=== PATIENT | male | born 1935 | race African-American/Black ===

== ENCOUNTER 2017-03-19 13:22 | Inpatient (IN) | payer OTHER, MEDICAID ==
[~2017-03-19] VITALS: Ht 175.3 cm; Wt 78.9 kg
[2017-03-19] MEDS ORDERED: ONDANSETRON HCL 4MG/2ML VIAL IV STA (13:49)
[2017-03-19] MEDS ORDERED: MORPHINE SULFATE 4 MG/ML CPJ (NOT FOR IM USE) IV STA (13:49)
[2017-03-19] MEDS ORDERED: ASPIRIN 81MG TABLET PO ONE (14:00)
[2017-03-19 14:38] LABS: BASOPHILS % 0.6 % (0.0-2.0); EOSINOPHILS % 1.2 % (0.0-5.0); HEMATOCRIT. 40.3 % (42.0-52.0); HEMOGLOBIN. 13.4 g/dL (14.0-18.0); LYMPHOCYTES % 16.9 % (20.0-50.0); MEAN CORPUSCULAR HGB CONC 33.2 g/dL (31.0-37.0); MEAN CORPUSCULAR VOLUME 93.5 fL (80.0-94.0); MEAN PLATELET VOLUME 9.8 fl (7.4-10.4); MONOCYTES % 5.7 % (2.0-8.0); NEUTROPHILS % 75.6 % (40.0-76.0); PLATELET 227 x1000/uL (130-400); RED BLOOD CELL COUNT 4.31 mill/uL (4.7-6.1); RED CELL DISTRIBUTION WIDTH 14.2 % (11.6-14.6); WHITE BLOOD COUNT 9.3 x1000/uL (4.5-11.0)
[2017-03-19 14:40] LABS: D-DIMER 0.51 mg/L FEU (<0.50); INR 1.1; PROTHROMBIN TIME 11.7 sec
[2017-03-19 14:45] LABS: ALANINE AMINOTRANSFERASE 21 IU/L (13-61); ALBUMIN 3.8 g/dL (3.4-5.0); ANION GAP 12; CALCIUM 8.4 mg/dL (8.5-10.1); CARBON DIOXIDE 28 mEq/L (21-32); CHLORIDE 104 mEq/L (98-107); ETHANOL BLOOD < 10 mg/dL; INDEX HEMOLYSI 1 (1-3); INDEX ICTERIC 1 (1-4); INDEX LIPEMIC 1 (1-3); LIPASE 253 IU/L (73-393); UREA NITROGEN BLOOD 29 mg/dL (7-21); eGFR 35 mL/min (>60)
[2017-03-19 14:47] LABS: NT PRO B-TYPE NATRIURETIC PEP 392 pg/mL (5-125); TROPONIN I < 0.02 ng/mL (0.00-0.04)
[2017-03-19 16:30] VITALS: BP 153/72
[2017-03-19] MEDS ORDERED: PROAIR INH (16:41)
[2017-03-19] MEDS ORDERED: HYDR-523 PO (16:41)
[2017-03-19] MEDS ORDERED: ALFUZOSIN PO (16:41)
[2017-03-19] MEDS ORDERED: CHOL100026 PO (16:41)
[2017-03-19] MEDS ORDERED: LANS30CA55 PO (16:41)
[2017-03-19] MEDS ORDERED: ONDANSETRON HCL 4MG/2ML VIAL IV PRN (16:45)
[2017-03-19 17:13] VITALS: BP 153/72
[2017-03-19 20:02] VITALS: BP 121/80
[2017-03-19] MEDS: MORPHINE SULFATE 4 MG/ML CPJ (NOT FOR IM USE) IV PRN (21:05)
[2017-03-19 23:46] VITALS: BP 143/88
[2017-03-19 23:57] LABS: CREATINE KINASE MB FRACTION 3.6 ng/mL (0.5-3.6)
[2017-03-20] MEDS: MORPHINE SULFATE 4 MG/ML CPJ (NOT FOR IM USE) IV PRN ×2 (03:22→08:23)
[2017-03-20 03:42] LABS: BASOPHILS % 0.6 % (0.0-2.0); EOSINOPHILS % 1.2 % (0.0-5.0); HEMATOCRIT. 40.8 % (42.0-52.0); HEMOGLOBIN. 13.6 g/dL (14.0-18.0); LYMPHOCYTES % 17.5 % (20.0-50.0); MEAN CORPUSCULAR HGB CONC 33.2 g/dL (31.0-37.0); MEAN CORPUSCULAR VOLUME 93.4 fL (80.0-94.0); MEAN PLATELET VOLUME 8.9 fl (7.4-10.4); MONOCYTES % 7.6 % (2.0-8.0); NEUTROPHILS % 73.1 % (40.0-76.0); PLATELET 233 x1000/uL (130-400); RED BLOOD CELL COUNT 4.37 mill/uL (4.7-6.1); RED CELL DISTRIBUTION WIDTH 13.8 % (11.6-14.6); WHITE BLOOD COUNT 10.8 x1000/uL (4.5-11.0)
[2017-03-20 04:05] VITALS: BP 130/85
[2017-03-20 06:50] LABS: ALANINE AMINOTRANSFERASE 24 IU/L (13-61); ALBUMIN 3.6 g/dL (3.4-5.0); CARBON DIOXIDE 28 mEq/L (21-32); CHLORIDE 104 mEq/L (98-107); CREATINE KINASE 164 IU/L (39-308); CREATINE KINASE MB FRACTION 3.3 ng/mL (0.5-3.6); INDEX HEMOLYSI 1 (1-3); INDEX ICTERIC 1 (1-4); INDEX LIPEMIC 1 (1-3); LDL CHOLESTEROL 102 mg/dL (5-100); TRIGLYCERIDE 133 mg/dL (0-150); TROPONIN I < 0.02 ng/mL (0.00-0.04); UREA NITROGEN BLOOD 28 mg/dL (7-21); eGFR 35 mL/min (>60)
[2017-03-20 07:02] LABS: ANION GAP 11; CALCIUM 8.6 mg/dL (8.5-10.1); HDL CHOLESTEROL 82 mg/dL (40-59)
[2017-03-20 08:00] VITALS: BP 133/90
[2017-03-20] MEDS: ASPIRIN 81MG EC TABLET PO SCH (08:22)
[2017-03-20] MEDS: ENOXAPARIN 30MG/0.3ML SYR SUBCUT SCH (08:22)
[2017-03-20] MEDS ORDERED: ENOXAPARIN 40MG/0.4ML SYR SUBCUT SCH (09:00)
[2017-03-20 12:00] VITALS: BP 148/76
[2017-03-20] MEDS ORDERED: LISI10TA5 PO (12:55)
[2017-03-20] MEDS ORDERED: ALBU90AE IH (12:55)
[2017-03-20] MEDS ORDERED: CYAN50003 PO (12:55)
[2017-03-20] MEDS ORDERED: TIOT4MIS2 IH (12:55)
[2017-03-20] MEDS ORDERED: ALFU10TA9 PO (12:55)
[2017-03-20] MEDS ORDERED: AMLODIPINE 5MG TABLET PO NR (13:45)
[2017-03-20] MEDS ORDERED: ALFUZOSIN HCL 10 MG PO SCH (14:15)
[2017-03-20] MEDS ORDERED: TAMSULOSIN HCL 0.4MG SR CAPSULE PO SCH (15:30)
[2017-03-20] MEDS ORDERED: PANTOPRAZOLE 40MG DR TABLET PO NR (15:45)
[2017-03-20 16:00] VITALS: BP 133/74
[2017-03-20 16:10] LABS: CREATINE KINASE MB FRACTION 3.5 ng/mL (0.5-3.6); TROPONIN I 0.02 ng/mL (0.00-0.04)
[2017-03-20] MEDS: IPRATROPIUM/ALBUTEROL 0.5-3(2.5)MG/3ML NEB HHN SCH ×2 (17:51→21:33)
[2017-03-20 20:08] VITALS: BP 125/75
[2017-03-21 00:01] VITALS: BP 103/67
[2017-03-21] MEDS: IPRATROPIUM/ALBUTEROL 0.5-3(2.5)MG/3ML NEB HHN SCH ×2 (01:54→06:13)
[2017-03-21 04:02] VITALS: BP 106/68
[2017-03-21 06:12] LABS: BASOPHILS % 0.4 % (0.0-2.0); EOSINOPHILS % 1.5 % (0.0-5.0); HEMATOCRIT. 39.4 % (42.0-52.0); HEMOGLOBIN. 12.9 g/dL (14.0-18.0); LYMPHOCYTES % 24.3 % (20.0-50.0); MEAN CORPUSCULAR HEMOGLOBIN 30.7 pg (28.0-32.0); MEAN CORPUSCULAR HGB CONC 32.7 g/dL (31.0-37.0); MEAN PLATELET VOLUME 9.6 fl (7.4-10.4); MONOCYTES % 7.3 % (2.0-8.0); NEUTROPHILS % 66.5 % (40.0-76.0); PLATELET 221 x1000/uL (130-400); RED BLOOD CELL COUNT 4.19 mill/uL (4.7-6.1); RED CELL DISTRIBUTION WIDTH 14.1 % (11.6-14.6); WHITE BLOOD COUNT 8.1 x1000/uL (4.5-11.0)
[2017-03-21] MEDS ORDERED: PANTOPRAZOLE 40MG DR TABLET PO SCH (07:40)
[2017-03-21 07:59] LABS: ANION GAP 12; CALCIUM 8.6 mg/dL (8.5-10.1); CARBON DIOXIDE 28 mEq/L (21-32); CHLORIDE 104 mEq/L (98-107); INDEX HEMOLYSI 1 (1-3); INDEX ICTERIC 1 (1-4); INDEX LIPEMIC 1 (1-3); TROPONIN I < 0.02 ng/mL (0.00-0.04); UREA NITROGEN BLOOD 27 mg/dL (7-21); eGFR 35 mL/min (>60)
[2017-03-21 08:00] VITALS: BP 113/66
[2017-03-21] MEDS ORDERED: AMLODIPINE 5MG TABLET PO SCH (09:00)
[2017-03-21] MEDS ORDERED: TAMSULOSIN HCL 0.4MG SR CAPSULE PO SCH (09:00)
[2017-03-21] MEDS ORDERED: LISINOPRIL 10MG TABLET PO SCH (09:00)
[2017-03-21] MEDS ORDERED: CHOLECALCIFEROL (D3) 1000 UNIT TABLET PO SCH (09:00)
[2017-03-21] MEDS: ASPIRIN 81MG EC TABLET PO SCH (09:13)
[2017-03-21] MEDS: ENOXAPARIN 30MG/0.3ML SYR SUBCUT SCH (09:14)
[2017-03-21] MEDS ORDERED: HYDROCODONE/ACETAMINOPHEN 5/325MG TABLET PO PRN (09:30)
[2017-03-21 11:46] VITALS: BP 113/66
[2017-03-21 12:00] VITALS: BP 155/94
== END 2017-03-21 12:20 | disposition home or self-care (01) | DRG 191 ==
LOC: ER 16:31 → 7WST 16:32
PROVIDERS: ADMIT Hospitalist; ATTEND Hospitalist
DX: J44.1 Chronic obstructive pulmonary disease with (acute) exacerbation (principal); N17.9 Acute kidney failure, unspecified; I13.10 Hypertensive heart and chronic kidney disease without heart failure, with stage 1 through stage 4 chronic kidney disease, or unspecified chronic kidney disease; E87.5 Hyperkalemia; N40.0 Benign prostatic hyperplasia without lower urinary tract symptoms; E86.0 Dehydration; I16.0 Hypertensive urgency; N18.9 Chronic kidney disease, unspecified; Z82.49 Family history of ischemic heart disease and other diseases of the circulatory system; Z86.14 Personal history of Methicillin resistant Staphylococcus aureus infection; Z86.73 Personal history of transient ischemic attack (TIA), and cerebral infarction without residual deficits; Z87.891 Personal history of nicotine dependence
CPT/HCPCS: 36415; 71010; 80048; 80053; 80061; 82550; 82553; 83690; 83880; 84484; 85025; 85379; 85610; 85730; 93005; 93306; 94640; 94664; 96374; 96375; 99291; G0482; J1650; J2270; J2405; J7620

== ENCOUNTER 2021-06-11 15:41 | Inpatient (IN) | payer MEDICARE, MEDICAID ==
[~2021-06-11] VITALS: Ht 175.3 cm; Wt 86.4 kg
[~2021-06-11 15:41] MED LIST: ALBU90AE IH; ALFU10TA9 PO; CHOL100044 PO; CYAN50003 PO; DUTA0.5C37 PO; HYDR-4001 PO; LANS30CA55 PO; LISI10TA26 PO; METO-293 PO; TIOT4MIS2 IH
[2021-06-11] MEDS ORDERED: MORPHINE SULFATE 4 MG/ML CPJ (NOT FOR IM USE) IV STA (16:22)
[2021-06-11 16:49] LABS: BASOPHILS % 0.5 % (0.0-2.0); EOSINOPHILS % 1.5 % (0.0-5.0); HEMATOCRIT. 38.8 % (42.0-52.0); HEMOGLOBIN. 13.1 g/dL (14.0-18.0); LYMPHOCYTES % 17.3 % (20.0-50.0); MEAN CORPUSCULAR HEMOGLOBIN 32.4 pg (28.0-32.0); MEAN CORPUSCULAR VOLUME 95.5 fL (80.0-94.0); MEAN PLATELET VOLUME 9.4 fl (7.4-10.4); MONOCYTES % 5.1 % (2.0-8.0); NEUTROPHILS % 75.6 % (40.0-76.0); PLATELET 196 x1000/uL (130-400); RED BLOOD CELL COUNT 4.06 mill/uL (4.7-6.1); RED CELL DISTRIBUTION WIDTH 14.3 % (11.6-14.6)
[2021-06-11 17:14] LABS: CHLORIDE 108 mEq/L (98-107)
[2021-06-11] MEDS ORDERED: SODIUM CHLORIDE 0.9% 1,000 ML IV ONE (17:30)
[2021-06-11] MEDS ORDERED: IOHEXOL-350 100 ML BOTTLE ONE (21:01)
[2021-06-11 21:50] VITALS: BP 138/95
[2021-06-11 22:00] VITALS: BP 138/95
[2021-06-11] MEDS ORDERED: IPRATROPIUM/ALBUTEROL 0.5-3(2.5)MG/3ML NEB HHN PRN (23:15)
[2021-06-11] MEDS ORDERED: NITROGLYCERIN 0.4MG TABLET SL SL NR (23:15)
[2021-06-11] MEDS ORDERED: DEXT 5%/0.2% NACL KCL 20MEQ/L 1,000 ML IV SCH (23:15)
[2021-06-11] MEDS ORDERED: CLONIDINE 0.1MG TABLET PO PRN (23:15)
[2021-06-11] MEDS ORDERED: ACETAMINOPHEN 325MG TABLET PO PRN (23:15)
[2021-06-12] VITALS (15 sets, daily range): BP systolic 109–140; BP diastolic 68–99
[2021-06-12 02:19] LABS: BASOPHILS % 0.5 % (0.0-2.0); EOSINOPHILS % 1.1 % (0.0-5.0); HEMATOCRIT. 40.3 % (42.0-52.0); HEMOGLOBIN. 13.4 g/dL (14.0-18.0); LYMPHOCYTES % 14.7 % (20.0-50.0); MEAN CORPUSCULAR HEMOGLOBIN 32.2 pg (28.0-32.0); MEAN CORPUSCULAR VOLUME 96.7 fL (80.0-94.0); MEAN PLATELET VOLUME 8.8 fl (7.4-10.4); MONOCYTES % 6.1 % (2.0-8.0); NEUTROPHILS % 77.6 % (40.0-76.0); PLATELET 181 x1000/uL (130-400); RED BLOOD CELL COUNT 4.17 mill/uL (4.7-6.1); RED CELL DISTRIBUTION WIDTH 14.3 % (11.6-14.6)
[2021-06-12 02:24] LABS: CHLORIDE 109 mEq/L (98-107)
[2021-06-12 02:33] LABS: LDL CHOLESTEROL 86 mg/dL (5-100)
[2021-06-12 02:35] LABS: CREATINE KINASE 155 IU/L (39-308); HDL CHOLESTEROL 84 mg/dL (40-59)
[2021-06-12 02:37] LABS: CREATINE KINASE MB FRACTION 4.8 ng/mL (0.5-3.6)
[2021-06-12] MEDS: DUTASTERIDE 0.5MG CAPSULE PO SCH (08:40)
[2021-06-12] MEDS: LISINOPRIL 10MG TABLET PO SCH (08:40)
[2021-06-12] MEDS: PANTOPRAZOLE SODIUM 40 MG/VIAL IV SCH (08:41)
[2021-06-12] MEDS ORDERED: HEPARIN 5000 UNITS/ML VIAL SUBCUT SCH (09:00)
[2021-06-12] MEDS ORDERED: LANSOPRAZOLE 30MG DR CAPSULE PO SCH (09:00)
[2021-06-12] MEDS ORDERED: DEXT 5%/0.45% NACL 1000ML 1,000 ML IV SCH (10:30)
[2021-06-12 11:11] LABS: CREATINE KINASE 182 IU/L (39-308)
[2021-06-12 11:12] LABS: CREATINE KINASE MB FRACTION 6.3 ng/mL (0.5-3.6)
[2021-06-12] MEDS: ASPIRIN 81MG TABLET PO SCH (12:22)
[2021-06-12] MEDS: SODIUM CHLORIDE 0.45% 1,000 ML IV SCH ×2 (12:23→23:56)
[2021-06-12] MEDS: METHYLPREDNISOLONE SOD SUCC 40 MG/ML VIAL IV SCH ×2 (12:23→21:15)
[2021-06-12] MEDS ORDERED: ONDANSETRON HCL 4MG/2ML INJ IV PRN (13:45)
[2021-06-12] MEDS ORDERED: HYDRALAZINE 20MG/ML VIAL IV PRN (13:45)
[2021-06-12] MEDS: IPRATROPIUM/ALBUTEROL 0.5-3(2.5)MG/3ML NEB HHN SCH ×2 (16:35→21:12)
[2021-06-12] MEDS ORDERED: NALOXONE HCL 0.4MG/ML VIAL IV PRN (17:00)
[2021-06-12 17:04] LABS: INR 1.1; PROTHROMBIN TIME 11.9 sec (9.6-11.0)
[2021-06-12 17:11] LABS: CREATINE KINASE 202 IU/L (39-308)
[2021-06-12 17:12] LABS: CREATINE KINASE MB FRACTION 7.4 ng/mL (0.5-3.6)
[2021-06-12] MEDS: ENOXAPARIN 100MG/ML SYR SUBCUT SCH (21:15)
[2021-06-12] MEDS: DILTIAZEM HCL 30MG TABLET PO SCH (21:16)
[2021-06-12] MEDS: HYDROCODONE/ACETAMINOPHEN 5/325MG TABLET PO PRN (21:36)
[2021-06-13] VITALS (12 sets, daily range): BP systolic 94–156; BP diastolic 69–99
[2021-06-13] MEDS: IPRATROPIUM/ALBUTEROL 0.5-3(2.5)MG/3ML NEB HHN SCH ×5 (00:55→20:36)
[2021-06-13] MEDS: DILTIAZEM HCL 30MG TABLET PO SCH ×3 (06:00→21:33)
[2021-06-13 06:45] LABS: HEMATOCRIT. 39.8 % (42.0-52.0); HEMOGLOBIN. 13.2 g/dL (14.0-18.0); MEAN CORPUSCULAR HEMOGLOBIN 31.8 pg (28.0-32.0); MEAN CORPUSCULAR VOLUME 96.3 fL (80.0-94.0); MEAN PLATELET VOLUME 9.6 fl (7.4-10.4); PLATELET 195 x1000/uL (130-400); RED BLOOD CELL COUNT 4.13 mill/uL (4.7-6.1); RED CELL DISTRIBUTION WIDTH 14.1 % (11.6-14.6)
[2021-06-13 06:56] LABS: CHLORIDE 105 mEq/L (98-107)
[2021-06-13 07:07] LABS: TOTAL IRON BINDING CAPACITY 271 ug/dL (250-450)
[2021-06-13 07:18] LABS: FERRITIN 103 ng/mL (22-322)
[2021-06-13 07:30] LABS: VITAMIN B12 SERUM 1965 pg/mL (211-911)
[2021-06-13] MEDS ORDERED: SODIUM POLYSTYRENE SULFONATE 15 G/60 ML BOT PO SCH (08:00)
[2021-06-13] MEDS: ASPIRIN 81MG TABLET PO SCH (08:57)
[2021-06-13] MEDS: DUTASTERIDE 0.5MG CAPSULE PO SCH (08:57)
[2021-06-13] MEDS: PANTOPRAZOLE SODIUM 40 MG/VIAL IV SCH (08:57)
[2021-06-13] MEDS: METHYLPREDNISOLONE SOD SUCC 40 MG/ML VIAL IV SCH ×2 (08:57→21:31)
[2021-06-13] MEDS: LISINOPRIL 10MG TABLET PO SCH (08:58)
[2021-06-13] MEDS ORDERED: AMLODIPINE 2.5MG TABLET PO SCH (09:00)
[2021-06-13] MEDS: HYDROCODONE/ACETAMINOPHEN 5/325MG TABLET PO PRN (09:49)
[2021-06-13] MEDS ORDERED: TERA5CAP4 MT (09:55)
[2021-06-13] MEDS ORDERED: AMLO10TA80 MT (09:56)
[2021-06-13 14:20] LABS: CLARITY URINE CLEAR (CLEAR); COLOR URINE YELLOW (YELLOW); KETONES URINE NEGATIVE (NEGATIVE); LEUKOCYTE ESTERASE URINE NEGATIVE (NEGATIVE); NITRITE URINE NEGATIVE (NEGATIVE); OCCULT BLOOD URINE NEGATIVE (NEGATIVE); PROTEIN URINE NEGATIVE (NEGATIVE); SPECIFIC GRAVITY URINE 1.014 (1.005-1.030); UROBILINOGEN URINE 0.2 E.U./dL (0.2-1.0)
[2021-06-13] MEDS: SODIUM CHLORIDE 0.45% 1,000 ML IV SCH (14:24)
[2021-06-13 18:49] LABS: PLATELET ESTIMATE NORMAL
[2021-06-13] MEDS: ENOXAPARIN 100MG/ML SYR SUBCUT SCH (21:33)
[2021-06-14] VITALS (12 sets, daily range): BP systolic 107–140; BP diastolic 62–93
[2021-06-14] MEDS: IPRATROPIUM/ALBUTEROL 0.5-3(2.5)MG/3ML NEB HHN SCH ×4 (00:25→21:30)
[2021-06-14] MEDS: SODIUM CHLORIDE 0.45% 1,000 ML IV SCH ×2 (01:52→16:20)
[2021-06-14] MEDS: DILTIAZEM HCL 30MG TABLET PO SCH ×3 (06:13→21:26)
[2021-06-14 08:02] LABS: HEMATOCRIT. 39.3 % (42.0-52.0); MEAN CORPUSCULAR HEMOGLOBIN 31.6 pg (28.0-32.0); MEAN CORPUSCULAR VOLUME 95.5 fL (80.0-94.0); MEAN PLATELET VOLUME 9.8 fl (7.4-10.4); PLATELET 203 x1000/uL (130-400); RED BLOOD CELL COUNT 4.12 mill/uL (4.7-6.1); RED CELL DISTRIBUTION WIDTH 14.2 % (11.6-14.6)
[2021-06-14] MEDS: LISINOPRIL 10MG TABLET PO SCH (09:12)
[2021-06-14] MEDS: ASPIRIN 81MG TABLET PO SCH (09:12)
[2021-06-14] MEDS: DUTASTERIDE 0.5MG CAPSULE PO SCH (09:12)
[2021-06-14] MEDS: FAMOTIDINE 20MG TABLET PO SCH (09:12)
[2021-06-14] MEDS: METHYLPREDNISOLONE SOD SUCC 40 MG/ML VIAL IV SCH ×2 (09:12→21:26)
[2021-06-14] MEDS: HYDROCODONE/ACETAMINOPHEN 5/325MG TABLET PO PRN (09:58)
[2021-06-14 15:49] LABS: PLATELET ESTIMATE NORMAL
[2021-06-14] MEDS: ENOXAPARIN 100MG/ML SYR SUBCUT SCH (21:26)
[2021-06-15] VITALS (9 sets, daily range): BP systolic 108–143; BP diastolic 71–106
[2021-06-15] MEDS: SODIUM CHLORIDE 0.45% 1,000 ML IV SCH (02:15)
[2021-06-15] MEDS: DILTIAZEM HCL 30MG TABLET PO SCH (05:59)
[2021-06-15] MEDS: METHYLPREDNISOLONE SOD SUCC 40 MG/ML VIAL IV SCH (09:42)
[2021-06-15] MEDS: FAMOTIDINE 20MG TABLET PO SCH (09:42)
[2021-06-15] MEDS: LISINOPRIL 10MG TABLET PO SCH (09:42)
[2021-06-15] MEDS: ASPIRIN 81MG TABLET PO SCH (09:42)
[2021-06-15] MEDS: DUTASTERIDE 0.5MG CAPSULE PO SCH (09:42)
[2021-06-15] MEDS: HYDROCODONE/ACETAMINOPHEN 5/325MG TABLET PO PRN (09:44)
[2021-06-15] MEDS ORDERED: DILT30TA38 MT (11:56)
[2021-06-15] MEDS ORDERED: ALBU90AE INH (11:56)
[2021-06-15] MEDS ORDERED: P20 PO (11:56)
[2021-06-15] MEDS ORDERED: ASPI-1497 MT (11:56)
[2021-06-15 13:02] LABS: HEMATOCRIT. 43.4 % (42.0-52.0); HEMOGLOBIN. 14.1 g/dL (14.0-18.0); MEAN CORPUSCULAR HEMOGLOBIN 31.8 pg (28.0-32.0); MEAN CORPUSCULAR VOLUME 97.9 fL (80.0-94.0); MEAN PLATELET VOLUME 9.7 fl (7.4-10.4); PLATELET 211 x1000/uL (130-400); RED BLOOD CELL COUNT 4.43 mill/uL (4.7-6.1); RED CELL DISTRIBUTION WIDTH 14.8 % (11.6-14.6)
[2021-06-15 20:49] LABS: PLATELET ESTIMATE NORMAL
== END 2021-06-15 15:30 | disposition home or self-care (01) | DRG 291 ==
LOC: ER 15:41 → 3WST 18:26 → ENRESERV 20:49
PROVIDERS: ADMIT Internal Medicine; ATTEND Internal Medicine
DX: I13.0 Hypertensive heart and chronic kidney disease with heart failure and stage 1 through stage 4 chronic kidney disease, or unspecified chronic kidney disease (principal); I50.43 Acute on chronic combined systolic (congestive) and diastolic (congestive) heart failure; J44.1 Chronic obstructive pulmonary disease with (acute) exacerbation; N17.9 Acute kidney failure, unspecified; I47.1 Supraventricular tachycardia; D64.9 Anemia, unspecified; E78.5 Hyperlipidemia, unspecified; Z20.822 Contact with and (suspected) exposure to COVID-19; E87.5 Hyperkalemia; G89.29 Other chronic pain; I25.10 Atherosclerotic heart disease of native coronary artery without angina pectoris; I44.0 Atrioventricular block, first degree; I48.0 Paroxysmal atrial fibrillation; K44.9 Diaphragmatic hernia without obstruction or gangrene; N18.9 Chronic kidney disease, unspecified; N20.0 Calculus of kidney; N40.0 Benign prostatic hyperplasia without lower urinary tract symptoms; Z86.73 Personal history of transient ischemic attack (TIA), and cerebral infarction without residual deficits; Z87.891 Personal history of nicotine dependence; Z79.891 Long term (current) use of opiate analgesic; Z79.899 Other long term (current) drug therapy
CPT/HCPCS: 36415; 71045; 71275; 80048; 80053; 80061; 81003; 82550; 82553; 82607; 82728; 83540; 83550; 83735; 83880; 84132; 84153; 84443; 84484; 85025; 85379; 87426; 93005; 93306; 93970; 94618; 97162; 99285; C9113; J1644; J1650; J2270; J2920; J7030; Q9967; A4315; G0103

== ENCOUNTER 2022-04-13 16:24 | Inpatient (IN) | payer MEDICARE, MEDICAID ==
[~2022-04-13] VITALS: Ht 177.8 cm; Wt 77.1 kg
[~2022-04-13 16:24] MED LIST changes: +ALBU90AE INH; +ASPI-1497 MT; +DILT30TA38 MT; -LISI10TA26 PO; +P20 PO; +TERA5CAP4 MT
[2022-04-13] MEDS ORDERED: IOHEXOL-350 100 ML BOTTLE ONE (17:17)
[2022-04-13 17:50] LABS: HEMATOCRIT. 41.1 % (42.0-52.0); HEMOGLOBIN. 13.7 g/dL (14.0-18.0); MEAN CORPUSCULAR HEMOGLOBIN 31.8 pg (28.0-32.0); MEAN CORPUSCULAR VOLUME 95.1 fL (80.0-94.0); MEAN PLATELET VOLUME 11.2 fl (7.4-10.4); PLATELET 236 x1000/uL (130-400); RED BLOOD CELL COUNT 4.32 mill/uL (4.7-6.1); RED CELL DISTRIBUTION WIDTH 14.2 % (11.6-14.6)
[2022-04-13 18:00] LABS: CHLORIDE 107 mEq/L (98-107)
[2022-04-13 18:26] LABS: INR 1.1; PARTIAL THROMBOPLASTIN TIME 28.5 sec (23.4-31.0); PROTHROMBIN TIME 11.7 sec (9.6-11.0)
[2022-04-13] MEDS ORDERED: ALBUTEROL (0.083%) 2.5MG/3ML NEB HHN STA (18:59)
[2022-04-13] MEDS ORDERED: IPRATROPIUM BROMIDE (0.02%) 0.5MG/2.5ML NEB HHN STA (18:59)
[2022-04-13] MEDS ORDERED: METHYLPREDNISOLONE SOD SUCC 125 MG/2 ML VIAL IV STA (18:59)
[2022-04-13] MEDS ORDERED: SODIUM BICARBONATE 8.4% 1 MEQ/ML 50ML SYR IV ONE (19:00)
[2022-04-13] MEDS ORDERED: ASPIRIN 325MG EC TABLET PO ONE (19:00)
[2022-04-13 20:52] LABS: NUCLEATED RED BLOOD CELLS 1 /100 WBC; PLATELET ESTIMATE NORMAL
[2022-04-13 22:15] VITALS: BP 119/69
[2022-04-14] VITALS: BP 111/79
[2022-04-14] MEDS ORDERED: IPRATROPIUM/ALBUTEROL 0.5-3(2.5)MG/3ML NEB HHN PRN (01:00)
[2022-04-14] MEDS: HYDROCODONE/ACETAMINOPHEN 5/325MG TABLET PO PRN ×3 (01:23→21:56)
[2022-04-14 04:00] VITALS: BP 115/77
[2022-04-14 07:11] LABS: HEMATOCRIT. 41.4 % (42.0-52.0); HEMOGLOBIN. 13.9 g/dL (14.0-18.0); MEAN CORPUSCULAR HEMOGLOBIN 31.9 pg (28.0-32.0); MEAN CORPUSCULAR VOLUME 94.7 fL (80.0-94.0); MEAN PLATELET VOLUME 10.3 fl (7.4-10.4); PLATELET 208 x1000/uL (130-400); RED BLOOD CELL COUNT 4.37 mill/uL (4.7-6.1); RED CELL DISTRIBUTION WIDTH 14.2 % (11.6-14.6)
[2022-04-14 07:33] LABS: CHLORIDE 106 mEq/L (98-107)
[2022-04-14 08:00] VITALS: BP 131/71
[2022-04-14] MEDS: ASPIRIN 81MG TABLET PO SCH (08:32)
[2022-04-14] MEDS ORDERED: PANTOPRAZOLE SODIUM 40 MG/VIAL IV SCH (09:00)
[2022-04-14] MEDS ORDERED: CLOPIDOGREL 75MG TABLET PO SCH (09:00)
[2022-04-14] MEDS: DILTIAZEM HCL 30MG TABLET PO SCH ×3 (10:45→21:57)
[2022-04-14 12:00] VITALS: BP 106/76
[2022-04-14] MEDS: SODIUM CHLORIDE 0.9% 1,000 ML IV SCH (13:00)
[2022-04-14] MEDS: METHYLPREDNISOLONE SOD SUCC 40 MG/ML VIAL IV SCH ×3 (13:00→21:16)
[2022-04-14 16:00] VITALS: BP 134/77
[2022-04-14 16:14] LABS: CLARITY URINE CLEAR (CLEAR); COLOR URINE YELLOW (YELLOW); KETONES URINE NEGATIVE (NEGATIVE); LEUKOCYTE ESTERASE URINE NEGATIVE (NEGATIVE); NITRITE URINE NEGATIVE (NEGATIVE); OCCULT BLOOD URINE NEGATIVE (NEGATIVE); PROTEIN URINE TRACE (NEGATIVE); SPECIFIC GRAVITY URINE 1.036 (1.005-1.030); UROBILINOGEN URINE 0.2 E.U./dL (0.2-1.0)
[2022-04-14] MEDS: IPRATROPIUM/ALBUTEROL 0.5-3(2.5)MG/3ML NEB HHN SCH ×2 (17:00→20:42)
[2022-04-14 20:00] VITALS: BP 117/62
[2022-04-14 21:00] LABS: PLATELET ESTIMATE NORMAL
[2022-04-14] MEDS: ATORVASTATIN CALCIUM 40MG TABLET PO SCH (21:16)
[2022-04-14] MEDS: TERAZOSIN HCL 5MG CAPSULE PO SCH (21:16)
[2022-04-14] MEDS ORDERED: NALOXONE HCL 0.4MG/ML VIAL IV PRN (22:45)
[2022-04-15] VITALS: BP 112/72
[2022-04-15] MEDS: SODIUM CHLORIDE 0.9% 1,000 ML IV SCH ×2 (00:17→12:40)
[2022-04-15 04:00] VITALS: BP 105/78
[2022-04-15] MEDS: IPRATROPIUM/ALBUTEROL 0.5-3(2.5)MG/3ML NEB HHN SCH ×5 (04:00→20:26)
[2022-04-15] MEDS: METHYLPREDNISOLONE SOD SUCC 40 MG/ML VIAL IV SCH ×3 (05:31→20:58)
[2022-04-15] MEDS: DILTIAZEM HCL 30MG TABLET PO SCH ×4 (05:31→23:27)
[2022-04-15 08:00] VITALS: BP 142/89
[2022-04-15 08:05] LABS: HEMATOCRIT. 40.5 % (42.0-52.0); HEMOGLOBIN. 13.4 g/dL (14.0-18.0); MEAN CORPUSCULAR HEMOGLOBIN 31.6 pg (28.0-32.0); MEAN PLATELET VOLUME 10.4 fl (7.4-10.4); PLATELET 192 x1000/uL (130-400); RED BLOOD CELL COUNT 4.26 mill/uL (4.7-6.1); RED CELL DISTRIBUTION WIDTH 14.2 % (11.6-14.6)
[2022-04-15] MEDS: HYDROCODONE/ACETAMINOPHEN 5/325MG TABLET PO PRN ×2 (08:52→21:08)
[2022-04-15] MEDS: FAMOTIDINE 20MG TABLET PO SCH (08:52)
[2022-04-15] MEDS: CLOPIDOGREL 75MG TABLET PO SCH (08:52)
[2022-04-15] MEDS: ASPIRIN 81MG TABLET PO SCH (08:52)
[2022-04-15] MEDS: DUTASTERIDE 0.5MG CAPSULE PO SCH (08:52)
[2022-04-15 12:00] VITALS: BP 138/84
[2022-04-15 13:37] LABS: PLATELET ESTIMATE NORMAL
[2022-04-15 16:00] VITALS: BP 135/72
[2022-04-15 20:00] VITALS: BP 153/92
[2022-04-15] MEDS: TERAZOSIN HCL 5MG CAPSULE PO SCH (20:57)
[2022-04-15] MEDS: ATORVASTATIN CALCIUM 40MG TABLET PO SCH (20:58)
[2022-04-15] MEDS: HEPARIN 5000 UNITS/ML VIAL SUBCUT SCH (21:09)
[2022-04-16] VITALS: BP 137/42
[2022-04-16] MEDS: SODIUM CHLORIDE 0.9% 1,000 ML IV SCH ×2 (02:45→16:59)
[2022-04-16] MEDS: IPRATROPIUM/ALBUTEROL 0.5-3(2.5)MG/3ML NEB HHN SCH ×6 (04:29→21:01)
[2022-04-16] MEDS: METHYLPREDNISOLONE SOD SUCC 40 MG/ML VIAL IV SCH ×3 (07:07→23:44)
[2022-04-16] MEDS: DILTIAZEM HCL 30MG TABLET PO SCH ×4 (07:07→23:44)
[2022-04-16 08:00] VITALS: BP 143/92
[2022-04-16] MEDS: DUTASTERIDE 0.5MG CAPSULE PO SCH (09:08)
[2022-04-16] MEDS: CLOPIDOGREL 75MG TABLET PO SCH (09:08)
[2022-04-16] MEDS: ASPIRIN 81MG TABLET PO SCH (09:08)
[2022-04-16] MEDS: FAMOTIDINE 20MG TABLET PO SCH (09:08)
[2022-04-16] MEDS: HEPARIN 5000 UNITS/ML VIAL SUBCUT SCH ×2 (09:08→20:54)
[2022-04-16] MEDS: HYDROCODONE/ACETAMINOPHEN 5/325MG TABLET PO PRN (09:11)
[2022-04-16 16:00] VITALS: BP 148/91
[2022-04-16] MEDS: GUAIFENESIN 200MG/10ML SUGAR FREE UDC PO PRN (16:55)
[2022-04-16] MEDS ORDERED: LACTULOSE 20G/30ML UDC PO SCH (17:00)
[2022-04-16] MEDS ORDERED: CHLORPROMAZINE HCL 25MG/1ML AMP IM NR (17:30)
[2022-04-16] MEDS: LACTULOSE 20G/30ML UDC PO SCH (17:56)
[2022-04-16 20:00] VITALS: BP 170/114
[2022-04-16] MEDS: LIDOCAINE 5% PATCH TOP SCH (20:53)
[2022-04-16] MEDS: TERAZOSIN HCL 5MG CAPSULE PO SCH (20:54)
[2022-04-16] MEDS: ATORVASTATIN CALCIUM 40MG TABLET PO SCH (20:55)
[2022-04-16] MEDS: GABAPENTIN 100MG CAPSULE PO SCH (23:43)
[2022-04-17] VITALS: BP 146/78
[2022-04-17] MEDS: IPRATROPIUM/ALBUTEROL 0.5-3(2.5)MG/3ML NEB HHN SCH ×7 (00:56→20:40)
[2022-04-17 04:00] VITALS: BP 138/86
[2022-04-17] MEDS: DILTIAZEM HCL 30MG TABLET PO SCH ×3 (06:18→15:47)
[2022-04-17] MEDS: GABAPENTIN 100MG CAPSULE PO SCH (06:18)
[2022-04-17 07:49] LABS: HEMOGLOBIN. 13.9 g/dL (14.0-18.0); MEAN CORPUSCULAR HEMOGLOBIN 31.6 pg (28.0-32.0); MEAN CORPUSCULAR VOLUME 95.7 fL (80.0-94.0); MEAN PLATELET VOLUME 10.2 fl (7.4-10.4); PLATELET 192 x1000/uL (130-400); RED BLOOD CELL COUNT 4.39 mill/uL (4.7-6.1); RED CELL DISTRIBUTION WIDTH 13.9 % (11.6-14.6)
[2022-04-17 08:00] VITALS: BP 122/86
[2022-04-17] MEDS: CLOPIDOGREL 75MG TABLET PO SCH (08:35)
[2022-04-17] MEDS: DUTASTERIDE 0.5MG CAPSULE PO SCH (08:35)
[2022-04-17] MEDS: FAMOTIDINE 20MG TABLET PO SCH (08:36)
[2022-04-17] MEDS: METHYLPREDNISOLONE SOD SUCC 40 MG/ML VIAL IV SCH ×2 (08:36→21:05)
[2022-04-17] MEDS: HEPARIN 5000 UNITS/ML VIAL SUBCUT SCH ×2 (08:36→21:02)
[2022-04-17] MEDS: ASPIRIN 81MG TABLET PO SCH (08:36)
[2022-04-17] MEDS: LACTULOSE 20G/30ML UDC PO SCH ×2 (08:37→15:47)
[2022-04-17] MEDS: LIDOCAINE 5% PATCH TOP SCH (08:38)
[2022-04-17 12:00] VITALS: BP 153/81
[2022-04-17 13:14] LABS: PLATELET ESTIMATE NORMAL
[2022-04-17] MEDS: HYDROCODONE/ACETAMINOPHEN 5/325MG TABLET PO PRN ×2 (13:56→21:04)
[2022-04-17 16:00] VITALS: BP 127/90
[2022-04-17] MEDS: GUAIFENESIN 200MG/10ML SUGAR FREE UDC PO PRN (16:50)
[2022-04-17 20:00] VITALS: BP 149/88
[2022-04-17] MEDS: ATORVASTATIN CALCIUM 40MG TABLET PO SCH (21:03)
[2022-04-17] MEDS: TERAZOSIN HCL 5MG CAPSULE PO SCH (21:05)
[2022-04-18] VITALS: BP 119/89
[2022-04-18] MEDS: IPRATROPIUM/ALBUTEROL 0.5-3(2.5)MG/3ML NEB HHN SCH ×4 (00:11→21:19)
[2022-04-18] MEDS: DILTIAZEM HCL 30MG TABLET PO SCH ×6 (00:26→22:45)
[2022-04-18 04:00] VITALS: BP 114/88
[2022-04-18] MEDS: GUAIFENESIN 200MG/10ML SUGAR FREE UDC PO PRN ×2 (05:24→16:41)
[2022-04-18] MEDS: HYDROCODONE/ACETAMINOPHEN 5/325MG TABLET PO PRN ×3 (05:25→22:07)
[2022-04-18 08:00] VITALS: BP 146/84
[2022-04-18] MEDS: LIDOCAINE 5% PATCH TOP SCH (08:29)
[2022-04-18] MEDS: LACTULOSE 20G/30ML UDC PO SCH ×2 (08:29→16:42)
[2022-04-18] MEDS: METHYLPREDNISOLONE SOD SUCC 40 MG/ML VIAL IV SCH ×2 (08:30→21:58)
[2022-04-18] MEDS: ASPIRIN 81MG TABLET PO SCH (08:31)
[2022-04-18] MEDS: HEPARIN 5000 UNITS/ML VIAL SUBCUT SCH ×2 (08:31→21:56)
[2022-04-18] MEDS: DUTASTERIDE 0.5MG CAPSULE PO SCH (08:31)
[2022-04-18] MEDS: CLOPIDOGREL 75MG TABLET PO SCH (08:31)
[2022-04-18] MEDS: FAMOTIDINE 20MG TABLET PO SCH (08:31)
[2022-04-18 12:00] VITALS: BP 150/104
[2022-04-18 16:00] VITALS: BP 152/107
[2022-04-18] MEDS: TERAZOSIN HCL 5MG CAPSULE PO SCH (21:00)
[2022-04-18] MEDS: ATORVASTATIN CALCIUM 40MG TABLET PO SCH (21:57)
[2022-04-18 22:05] VITALS: BP 155/105
[2022-04-19] VITALS (7 sets, daily range): BP systolic 121–170; BP diastolic 90–113
[2022-04-19] MEDS: IPRATROPIUM/ALBUTEROL 0.5-3(2.5)MG/3ML NEB HHN SCH ×5 (01:23→21:18)
[2022-04-19] MEDS: DILTIAZEM HCL 30MG TABLET PO SCH ×4 (04:45→21:16)
[2022-04-19] MEDS: HEPARIN 5000 UNITS/ML VIAL SUBCUT SCH ×2 (08:51→21:16)
[2022-04-19] MEDS: ASPIRIN 81MG TABLET PO SCH (08:51)
[2022-04-19] MEDS: METHYLPREDNISOLONE SOD SUCC 40 MG/ML VIAL IV SCH ×2 (08:51→21:08)
[2022-04-19] MEDS: LACTULOSE 20G/30ML UDC PO SCH ×2 (08:51→17:05)
[2022-04-19] MEDS: DUTASTERIDE 0.5MG CAPSULE PO SCH (08:51)
[2022-04-19] MEDS: FAMOTIDINE 20MG TABLET PO SCH (08:52)
[2022-04-19] MEDS: CLOPIDOGREL 75MG TABLET PO SCH (08:52)
[2022-04-19] MEDS: LIDOCAINE 5% PATCH TOP SCH (08:52)
[2022-04-19] MEDS: HYDROCODONE/ACETAMINOPHEN 5/325MG TABLET PO PRN (09:40)
[2022-04-19] MEDS ORDERED: BISACODYL 10MG SUPP PR NR (19:15)
[2022-04-19] MEDS ORDERED: NA PHOS,M-B/NA PHOS,DI-BA ENEMA 118ML PR NR (19:24)
[2022-04-19] MEDS ORDERED: MAGNESIUM CITRATE 300ML SOLUTION PO NR (20:30)
[2022-04-19] MEDS: ATORVASTATIN CALCIUM 40MG TABLET PO SCH (21:09)
[2022-04-19] MEDS: TERAZOSIN HCL 5MG CAPSULE PO SCH (21:15)
[2022-04-19 21:55] LABS: BG CARBOXYHEMOGLOBIN 0.3 % (0.5-1.5); BG DEOXYHEMOGLOBIN 2.8 % (0.0-5.0); BG FRACTION INSPIRED OXYGEN 28; BG METHEMOGLOBIN 0.1 % (0.0-1.5); BG OXYGEN SATURATION 97.2 % (92.0-98.5); BG OXYHEMOGLOBIN 96.8 % (94.0-97.0); BG PCO2 40.4 mmHg (35.0-45.0); BG PH 7.374 (7.350-7.450); BG PO2 97.5 mmHg (75.0-100.0); BG SAMPLE SITE RIGHT RADIAL; BG TOTAL HEMOGLOBIN 15.2 g/dL (12.0-18.0); BG VENT MODE NASAL CANNULA
[2022-04-20] VITALS: BP 113/76
[2022-04-20] MEDS: IPRATROPIUM/ALBUTEROL 0.5-3(2.5)MG/3ML NEB HHN SCH ×4 (00:28→12:00)
[2022-04-20 04:00] VITALS: BP 129/94
[2022-04-20] MEDS: DILTIAZEM HCL 30MG TABLET PO SCH ×2 (06:13→10:09)
[2022-04-20] MEDS: HYDROCODONE/ACETAMINOPHEN 5/325MG TABLET PO PRN (07:43)
[2022-04-20 08:00] VITALS: BP_SYST 148; BP_SYST 151; BP_DIAS 56; BP_DIAS 93
[2022-04-20] MEDS: CLOPIDOGREL 75MG TABLET PO SCH (08:56)
[2022-04-20] MEDS: LACTULOSE 20G/30ML UDC PO SCH (08:56)
[2022-04-20] MEDS: LIDOCAINE 5% PATCH TOP SCH (08:57)
[2022-04-20] MEDS: ASPIRIN 81MG TABLET PO SCH (08:57)
[2022-04-20] MEDS: HEPARIN 5000 UNITS/ML VIAL SUBCUT SCH (08:58)
[2022-04-20] MEDS: METHYLPREDNISOLONE SOD SUCC 40 MG/ML VIAL IV SCH (08:58)
[2022-04-20] MEDS: FAMOTIDINE 20MG TABLET PO SCH (08:59)
[2022-04-20] MEDS: DUTASTERIDE 0.5MG CAPSULE PO SCH (09:30)
[2022-04-20 12:00] VITALS: BP 138/78
[2022-04-20] MEDS ORDERED: LORAZEPAM 0.5MG TABLET PO PRN (12:45)
[2022-04-20] MEDS ORDERED: ATORVASTATIN CALCIUM 40MG TABLET PO SCH (12:45)
[2022-04-20] MEDS ORDERED: NALOXONE HCL 0.4MG/ML VIAL IV PRN (12:45)
== END 2022-04-20 14:00 | DRG 65 ==
LOC: ER 16:24 → 8WST 19:06 → ENRESERV 19:47
PROVIDERS: ADMIT Internal Medicine; ATTEND Internal Medicine
DX: I63.9 Cerebral infarction, unspecified (principal); I47.1 Supraventricular tachycardia; J44.1 Chronic obstructive pulmonary disease with (acute) exacerbation; N17.9 Acute kidney failure, unspecified; R65.10 Systemic inflammatory response syndrome (SIRS) of non-infectious origin without acute organ dysfunction; Z20.822 Contact with and (suspected) exposure to COVID-19; I65.01 Occlusion and stenosis of right vertebral artery; I65.21 Occlusion and stenosis of right carotid artery; I13.10 Hypertensive heart and chronic kidney disease without heart failure, with stage 1 through stage 4 chronic kidney disease, or unspecified chronic kidney disease; I63.511 Cerebral infarction due to unspecified occlusion or stenosis of right middle cerebral artery; E78.00 Pure hypercholesterolemia, unspecified; I44.0 Atrioventricular block, first degree; N18.9 Chronic kidney disease, unspecified; R29.704 NIHSS score 4; N40.0 Benign prostatic hyperplasia without lower urinary tract symptoms; Z87.891 Personal history of nicotine dependence; Z79.899 Other long term (current) drug therapy; Z86.73 Personal history of transient ischemic attack (TIA), and cerebral infarction without residual deficits
CPT/HCPCS: 36415; 36600; 70496; 70498; 70551; 71045; 74018; 76770; 80048; 80053; 80061; 80076; 81003; 82375; 82805; 82962; 83036; 84484; 85025; 87426; 92610; 93005; 93306; 94640; 94644; 94664; 95816; 97116; 97162; 99291; C9113; J1644; J2920; J2930; J3230; J3490; J7030; Q9967